=== PATIENT | female | born 1990 ===

== ENCOUNTER 2018-05-07 19:37 | Emergency (ER) | payer OTHER ==
[~2018-05-07] VITALS: Ht 160 cm; Wt 54.4 kg
[~2018-05-07 19:37] MED LIST: ALBU90OI INH; AMOCLA875 PO; AMOX500 PO; BENZ2 PO; Bactrim Ds Tab1 EACH PO; DOXY100T53 PO; HALO5 PO; HYDACE5 PO; IBUP600 PO; IBUP800 PO; LORA1 PO; Monodox100 MG PO; NEOPOLHYDS OT; PROM25 PO; PSEU120ER PO; RISP2 PO; RXERYTOPTH OP
[2018-05-07 21:08] LABS: BASOPHILS ABSOLUTE AUTO 0.06 K/mm3 (0.00-0.23); BASOPHILS PERCENT AUTO 0 % (0-2); EOSINOPHILS ABSOLUTE AUTO 0.01 K/mm3 (0.00-0.68); EOSINOPHILS PERCENT AUTO 0 % (0-6); Hematocrit 33.9 % (33.0-51.0); Hemoglobin 10.2 g/dL (11.5-16.0); IMMATURE GRAN ABSOLUTE AUTO 0.14 K/mm3 (0.00-0.10); IMMATURE GRAN PERCENT AUTO 1 % (0-1); LYMPHOCYTES ABSOLUTE AUTO 1.45 K/mm3 (0.84-5.20); LYMPHOCYTES PERCENT AUTO 8 % (21-46); MONOCYTES ABSOLUTE AUTO 1.81 K/mm3 (0.16-1.47); MONOCYTES PERCENT AUTO 10 % (4-13); Mean Corpuscular HGB 20.3 pg (26.0-34.0); Mean Corpuscular HGB Conc 30.1 g/dL (31.5-36.5); Mean Corpuscular Volume 67 fL (80-100); NEUTROPHILS ABSOLUTE AUTO 15.23 K/mm3 (1.96-9.15); NEUTROPHILS PERCENT AUTO 81 % (41-73); Platelet Count 266 K/mm3 (150-400); RDW Coefficient Variation 18.6 % (11.7-14.2); Red Blood Cell Count 5.03 M/mm3 (3.80-5.20)
[2018-05-07] MEDS ORDERED: Amoxicillin500 M1 PO (21:23)
[2018-05-07 21:28] LABS: Alanine Aminotransfer (ALT/SGP 68 U/L (12-78); Albumin, Blood 3.5 g/dL (3.4-5.0); Albumin/Globulin Ratio 0.7 (0.8-1.8); Alk Phos 144 U/L (50-136); Anion Gap 11 mmol/L (6-16); Aspartate Aminotrans (AST/SGOT 50 U/L (12-37); Bilirubin, Total 0.7 mg/dL (0.1-1.0); Blood Urea Nitrogen 9 mg/dL (8-24); Bun/Creatinine Ratio 15.2 (12.0-20.0); CO2, Blood 24 mmol/L (21-32); Calcium, Blood 8.4 mg/dL (8.5-10.1); Chloride, Blood 95 mmol/L (98-108); Creatinine, Blood 0.59 mg/dL (0.40-1.00); Globulin, Blood 5.1 g/dL (2.2-4.0); Glomerular Filtration Rate >60 (60-); Glucose, Blood 117 mg/dL (70-99); Potassium, Blood 3.4 mmol/L (3.5-5.5); Sodium, Blood 130 mmol/L (136-145); Total Protein, Blood 8.6 g/dL (6.4-8.2)
[2018-05-07] MEDS ORDERED: Cleocin HCl300 MG PO (22:15)
[2018-05-07] MEDS ORDERED: ONDA4ODT MM (22:15)
[2018-05-07 22:29] LABS: Source, Urine Voided
[2018-05-07 22:34] LABS: Bilirubin, Urine Neg (Neg); Blood, Urine Neg (Neg); Glucose Qualitative, Urine Neg (Neg); Ketones, Urine Neg (Neg); Leukocyte Esterase, Urine Neg (Neg); Nitrite, Urine Neg (Neg); Protein, Urine Neg (Neg); Specific Gravity, Urine 1.005 (1.003-1.022); Urobilinogen, Urine NORM (Normal)
[2018-05-07 22:36] LABS: Appearance, Urine Clear (Clear); Color, Urine Yellow (P-Yellow)
== END 2018-05-07 22:54 | disposition home or self-care (01) ==
LOC: ER 19:37
PROVIDERS: Emergency Medicine
DX: K04.7 Periapical abscess without sinus (principal); E86.0 Dehydration; R11.0 Nausea; F17.200 Nicotine dependence, unspecified, uncomplicated
CPT/HCPCS: 36415; 80053; 81003; 81025; 83690; 85025; 96374; 99284-25; J2405; J7030